=== PATIENT | female | born 1970 | race Caucasian/White ===

== ENCOUNTER → 2016-09-27 | Outpatient (CLI) | payer BC ==
--- NOTE | 2016-09-27 15:05 | MR ---
EXAMINATION TYPE: MR knee LT wo con DATE OF EXAM: 09/27/2016 6:43 AM COMPARISON: NONE HISTORY: Pain in lt knee TECHNIQUE: Multiplanar, multisequence imaging of the left knee is performed without IV contrast. FINDINGS: MEDIAL MENISCUS: Anterior and posterior horns are intact without tear. LATERAL MENISCUS: Anterior and posterior horns are intact without tear. CRUCIATE LIGAMENTS: The anterior and posterior cruciate ligaments are intact and unremarkable. COLLATERAL LIGAMENTS: The medial collateral ligament and lateral collateral ligament complex are inta ct and unremarkable. EXTENSOR MECHANISM: Visualized quadriceps and patellar tendons are intact. EFFUSION: No significant suprapatellar joint effusion. POPLITEAL CYST: No popliteal/lockwood cyst. TRICOMPARTMENT SPACES: Joint spaces are preserved. CARTILAGE: No significant cartilage erosion is evident. Cartilage thickness appears appropriate. BONE MARROW SIGNAL: No focal abnormal marrow signal is appreciated. OTHER: No additional significant abnormality is appreciated. IMPRESSION: 1. No suspicious abnormality MRI left knee
== END | disposition home or self-care (01) ==
LOC: RADMRIMAIN 06:09
PROVIDERS: ATTEND Family Medicine
DX: M25.562 Pain in left knee (principal)

== ENCOUNTER → 2019-10-13 | Outpatient (CLI) | payer BC | END | disposition home or self-care (01) | LOC: LABWHC1 15:47 | PROVIDERS: ATTEND Family Medicine | DX: B97.29 Other coronavirus as the cause of diseases classified elsewhere (principal); R50.9 Fever, unspecified | CPT/HCPCS: 87502; U0002 ==

== ENCOUNTER → 2020-04-15 | Outpatient (CLI) | payer BC ==
--- NOTE | 2020-04-15 10:33 | XR ---
EXAMINATION TYPE: XR chest 2V DATE OF EXAM: 04/15/2020 COMPARISON: NONE HISTORY: Shortness of breath TECHNIQUE: Frontal and lateral views of the chest are obtained. FINDINGS: There is no focal air space opacity, pleural effusion, or pneumothorax seen. The cardiac silhouette size is within normal limits. There are prominent lung volumes. The osseous structures ar e intact, there may be spinal curvature, calcified intervertebral disc noted at the lower thoracic sp ine. IMPRESSION: No acute cardiopulmonary process.
== END | disposition home or self-care (01) ==
LOC: RADXRMAIN 09:10
PROVIDERS: ATTEND Internal Medicine Hematology & Oncology
DX: R06.02 Shortness of breath (principal); E83.110 Hereditary hemochromatosis; D69.3 Immune thrombocytopenic purpura; D68.59 Other primary thrombophilia; L40.9 Psoriasis, unspecified
CPT/HCPCS: 71046

== ENCOUNTER 2021-03-24 07:10 | Day surgery (SDC) | payer BC ==
[2021-03-23 08:47] VITALS: BMI 25.0
[~2021-03-24 07:10] MED LIST: LIDOCAINE 1% (10MG/ML) FOR IV START INTRADERMA PRN
[2021-03-24 07:38] VITALS: TEMP 97.8
[2021-03-24] MEDS: LACTATED RINGERS 1,000 ML IV SCH ×2 (07:44→08:45)
--- NOTE | 2021-03-24 09:21 | P.PCN ---
Date of Procedure: 03/24/21 Procedure(s) Performed: BRIEF HISTORY: Patient is a 50-year-old pleasant white female scheduled for an elective colonoscopy as a part of the for colorectal neoplasia. PROCEDURE PERFORMED: Colonoscopy with snare polypectomy. PREOPERATIVE DIAGNOSIS: Screening for colon cancer. IV sedation per Anesthesia. PROCEDURE: After informed consent was obtained, the patient, was brought into the endoscopy unit. IV sedation was administered by Anesthesia under continuous monitoring. Digital rectal examination was normal. Initially the Olympus CF-160 flexible video colonoscope was then inserted in the rectum, gradually advanced into the cecum without any difficulty. Careful examination was performed as the scope was gradually being withdrawn. Ileocecal valve and the appendiceal orifice were visualized and appeared normal. Prep was excellent. Mucosa of the cecum, ascending colon, transverse colon, descending colon normal. The sigmoid: There was a 7-8 mm polyp removed by snare polypectomy. Rest of the, sigmoid colon, and rectum appeared normal. Retroflexion was performed in the rectum and no lesions were seen. The patient tolerated the procedure well. IMPRESSION: 7-8 mm sigmoid colon polyp status post polypectomy. RECOMMENDATIONS: Findings of this examination were discussed with the patient as well as a family. She was advised to follow with the biopsy results. If the biopsy shows an adenoma she can have a repeat colonoscopy in 5 years.
[2021-03-24 09:42] VITALS: BP 105/74; PULSE 84; RESP 16
[2021-03-24] MEDS ORDERED: ONDANSETRON 4 MG/2 ML VIAL ONE (09:48)
[2021-03-24] MEDS ORDERED: LIDOCAINE 1% INJ 10MG/ML (20 ML MDV) ONE (09:48)
[2021-03-24] MEDS ORDERED: GLYCOPYRROLATE 0.2 MG/ML 2 ML VIAL ONE (09:48)
[2021-03-24] MEDS ORDERED: PROPOFOL 10 MG/ML 20 ML VIAL IV ONE (09:48)
== END 2021-03-24 10:21 | disposition home or self-care (01) ==
LOC: ORWHC2ENDO 07:10
PROVIDERS: ATTEND Internal Medicine Gastroenterology
DX: Z12.11 Encounter for screening for malignant neoplasm of colon (principal); D12.5 Benign neoplasm of sigmoid colon
CPT/HCPCS: 45385; 81025; 88305; J2405; J2001; J2704

== ENCOUNTER → 2022-03-07 | Outpatient (CLI) | payer BC ==
--- NOTE | 2022-03-07 12:25 | CA ---
Stress Echo Report Haley Liriano Age: 51 Gender: F : 1970 Exam Date: 03/07/2022 11:19 Exam Location: [facility] Ht (in): 65 Wt (lb): 155 Ordering Physician: Josemanuel Yeung DO Referring Physician: ,, Sandwich Machine Operator: Gabi Dutton RDCS Technologist Procedure CPT: Indication: R07.9 CHEST PAIN ICD-9 Codes: Rhythm: Patient History: Shortness of breath Cardiac Medications: Medications in past 24 hours: Contrast: Stress Results Protocol: Mario Total dose(mL): Exercise Duration (min:sec): 9:[address] Depression (mm): Angina Score: Huffman Score: METS: 10.9 Resting HR: 73 Resting BP: 175 / 87 Peak HR: 160 Peak BP: 176 / 82 Max Predicted HR: 169 95 % Max Predicted HR Target HR: 144 Double Product: [id number] Stress Summary: BP Response: Reason for Termination: Reached target heart rate or work-load Cardiac Symptoms: Test terminated after reaching target heart rate (85% max predicted) ECG Analysis Resting ECG: Normal sinus rhythm normal axis normal intervals Stress ECG: No significant ST segment depression Arrhythmia: Echo Analysis Resting Echo: Normal left ventricular size wall motion systolic function Peak Echo Analysis: Hyperdynamic response MEASUREMENTS (Male/Female) Normal Values CONCLUSIONS Good exercise tolerance Negative stress test by EKG criteria Negative stress echo Dr. Tera Sifuentes MD (Electronically Signed) Final Date: 07 March 2022 12:24
== END | disposition home or self-care (01) ==
LOC: RADNMMAIN 10:16
PROVIDERS: ATTEND Family Medicine
DX: R07.9 Chest pain, unspecified (principal)
CPT/HCPCS: 93351